=== PATIENT | female | born 1975 | race Caucasian/White ===

== ENCOUNTER 2024-08-01 19:47 | Emergency (ER) | payer OTHER, SELFPAY ==
[2024-08-01 20:03] VITALS: BP 118/62
[2024-08-01] MEDS: ZOFRAN ODT (ORALLY DISINTEGRATING) 4 MG PO (20:13)
[2024-08-01 20:37] LABS: % Basophils 0.1 % (0-2); % Immature Granulocytes 0.2 % (0-0.5); % Lymphocytes 6.8 % (20.5-51.1); % Monocytes 3.9 % (1.7-9.3); Absolute Lymphocytes 0.6 10^3/uL (1.2-3.4); Absolute Monocytes 0.3 10^3/uL (0.1-0.6); Absolute Neutrophils 7.6 10^3/uL (1.4-6.5); Hematocrit 32.4 % (37.0-47.0); Hemoglobin 10.1 g/dL (12.0-16.0); Mean Corp Hgb Conc. 31.2 g/dL (33.0-37.0); Mean Corpuscular Hgb 21.6 pg (27.0-31.0); Mean Corpuscular Volume 69.2 fL (81.0-99.0); Nucleated Red Blood Cells % 0 %; Platelet Count 418 10^3/uL (130-400); Red Blood Cell Count 4.68 10^6/uL (4.20-5.40); Red Cell Dist. Width 17.2 % (11.5-14.5); White Blood Cell Count 8.6 10^3/uL (4.8-10.8)
[2024-08-01 20:51] LABS: HCG, Serum Qualitative Screen Negative
[2024-08-01 20:56] LABS: ALT (SGPT) 15 U/L (0-35); AST (SGOT) 20 U/L (14-36); Albumin 4.6 g/dl (3.5-5.0); Alkaline Phosphatase 55 U/L (38-126); Blood Urea Nitrogen 22 mg/dl (7-17); Carbon Dioxide 20 mmol/L (22-30); Chloride 106 mmol/L (98-107); Glucose 119 mg/dl (70-99); Potassium 3.7 mmol/L (3.5-5.1); Sodium 140 mmol/L (135-145); Total Protein 7.3 g/dl (6.3-8.2); eGFR > 60.00
[2024-08-01 20:57] LABS: Lipase 131 U/L (23-300)
[2024-08-01 20:58] LABS: COVID-19 Antigen Negative (Negative)
--- NOTE | 2024-08-01 22:34 | ED.GENMED ---
History of Present Illness
General
Chief Complaint: Abdominal Symptoms
Time Seen by Provider: 08/01/24 22:33
History of Present Illness
History of Present Illness:
TIME OF INITIAL ENCOUNTER: 10:40 PM
HPI: The patient presents with intractable vomiting. She has diffuse myalgias. 'Everything hurts'. This is associate with diarrhea. She did not think it was food poisoning as her son had the same thing to eat and he did not get sick. She does
not think that she has a migraine as she normally has migraines that only has associated with nausea not this much vomiting.
EXAM:
GENERAL: Appears somewhat uncomfortable
HEENT: Dry oral mucosa
CARDIOVASCULAR: No murmurs, borderline tachycardic heart rate, regular rhythm, No chest wall tenderness
PULMONARY: No respiratory distress, breath sounds are clear and equal
ABDOMEN: Soft with no peritoneal signs, no tenderness
NEUROLOGIC: Excellent strength all extremities, no coordination deficits
PSYCHIATRIC: Appropriate mental status, normal insight and judgement
EXTREMITIES: Nontender, no edema, moves all extremities equally
SKIN: No rash, no lesions
NUMBER AND COMPLEXITY OF PROBLEMS ADDRESSED AT THE ENCOUNTER
� Chronic conditions affecting care: No significant past medical history however does have migraines
� Acute Exacerbation and/or Progression of Chronic Illness: This is an acute problem
� Differential Diagnosis includes: Viral gastroenteritis, foodborne illness, migraine, dehydration, EVERARDO, viral syndrome
AMOUNT AND/OR COMPLEXITY OF DATA TO BE REVIEWED AND ANALYZED
� I performed an independent evaluation of and my interpretation is:
EKG:
CT:
X-rays:
Laboratory Studies: White count normal, hemoglobin 10.1, bicarb 20, hCG negative
Other:
� Review of other/old records: No old records available for review in [facility]
� Clinical information was obtained by an independent historian: I spoke to mother at bedside
� Prescriptions/Medications Considered but not given:
� Further testing considered but not performed: No clear indication for imaging as her pains are diffuse
RISK OF COMPLICATIONS AND/OR MORBIDITY OR MORTALITY OF PATIENT MANAGEMENT
� Social determinants of health affecting care: Lives at home in [place] and is only staying with her mother locally and was supposed to fly back today
� Discussion with other providers:
� Escalation of care including admission/observation vs risk of discharge considered: Upon arrival in triage, the patient was given oral Zofran. She did report some improvement with respect to the nausea and vomiting however
still feels very dehydrated. Will give IV fluids, and will also try Reglan/Benadryl as well as Toradol.
ANY OTHER UPDATES:
12:15 AM: The patient overall feels somewhat improved. She does appear somewhat sedated after the meds given. Blood pressure, heart rate, and sat are normal after meds given.
Phy Exam
Physical Exam
Physical Exam:
See HPI
Course
Orders/Labs/Results
Orders:
Orders
08/01/24 20:11
Ondansetron Orally Disint [Zofran Odt (Orally Disintegrating)] 4 mg .ROUTE .STK-MED ONE
08/01/24 20:13
Ondansetron Orally Disint [Zofran Odt (Orally Disintegrating)] 4 mg PO NOW STA
08/01/24 20:15
Test Result ONCE
08/01/24 20:19
COVID-19 Antigen Urgent
Source: Nasal Swab
Complete Blood Count/With Diff Urgent
Comprehensive Metabolic Panel Urgent
HCG, Serum Qualitative Screen Urgent
Lipase Urgent
Influenza A+B Rapid Molecular Urgent
JUAQUIN Source: Nasal Swab
Specimen Description:
08/01/24 23:05
0.9% Sodium Chloride 1000 ml [Nss] 1,000 ml IV BOLUS
Diphenhydramine [Benadryl] 25 mg IV NOW STA
Ketorolac [Toradol] 15 mg IV NOW STA
Metoclopramide [Reglan] 10 mg IV NOW STA
Abnormal Lab Results
08/01/24
20:19
Hgb 10.1 L g/dL
(12.0-16.0)
Hct 32.4 L %
(37.0-47.0)
MCV 69.2 L fL
(81.0-99.0)
MCH 21.6 L pg
(27.0-31.0)
MCHC 31.2 L g/dL
(33.0-37.0)
RDW 17.2 H %
(11.5-14.5)
Plt Count 418 H 10^3/uL
(130-400)
Absolute Neuts (auto) 7.6 H 10^3/uL
(1.4-6.5)
Absolute Lymphs (auto) 0.6 L 10^3/uL
(1.2-3.4)
Neutrophils % 89.0 H %
(42.2-75.2)
Lymphocytes % 6.8 L %
(20.5-51.1)
Carbon Dioxide 20 L mmol/L
(22-30)
BUN 22 H mg/dl
(7-17)
Glucose 119 H mg/dl
(70-99)
08/01/24 20:19
08/01/24 20:19
Vital Signs
Initial and Last Documented VS:
Initial Vital Signs
Temp Pulse Resp BP Pulse Ox
37.2 C 100 16 118/62 100
08/01/24 20:03 08/01/24 20:03 08/01/24 20:03 08/01/24 20:03 08/01/24 20:03
Last Documented Vital Signs
Temp Pulse Resp BP Pulse Ox
37.2 C 100 16 118/62 100
08/01/24 20:03 08/01/24 20:03 08/01/24 20:03 08/01/24 20:03 08/01/24 20:03
*Critical Care Note
Total Time (30-74mins, 75-104mins- exclusive of procedures): Not Applicable
ED Attending Note
-
Portions of this chart may have been created with voice recognition software.� Occasional wrong word or��sound alike� substitutions may have occurred due to the inherent limitations of voice recognition software.
Discharge Plan
Departure
Patient Disposition: Home (Routine Discharge)
Date of Disposition: 08/02/24
Time of Disposition: 00:31
Patient with high blood pressure during this ER visit?: Yes
Discharge Problem:
Nausea vomiting and diarrhea
Instructions: Diarrhea in teens and adults, Nausea and Vomiting, Adult (DC)
Referrals:
NONE,* [Family Provider] -
Activity Restrictions/Additional Instructions:
I suspect that your symptoms are related to a viral illness such as a stomach bug. We did give you nausea medicine as well as a liter of fluid. Your blood work is relatively unremarkable with exception of a slightly low bicarbonate level which
suggest just a little bit of dehydration. Your kidney function and white blood cell count are normal. Your electrolytes are normal. Your glucose is normal. test is negative.
Interventions
Interventions:
*Risk Screen - Suicide Last Done: 08/01/24 23:54
*General Assessment Last Done: 08/01/24 23:54
*Neglect/Abuse Screening Last Done: 08/01/24 23:54
ED- Fall Risk Assessment Last Done: 08/01/24 23:54
*ED COVID-19 Vaccine History Last Done: 08/01/24 23:54
ZG-Sxxcbn-Rqavnfybyt Assessment Last Done: 08/01/24 23:55
ED- Neurological Assessment Last Done: 08/01/24 23:55
Discharge Date and Time
Print Language: ROMANIAN
[2024-08-01] MEDS: NSS 1000 IV (23:43)
[2024-08-01] MEDS: BENADRYL 25 MG IV (23:46)
[2024-08-01] MEDS: REGLAN 10 MG IV (23:47)
[2024-08-01] MEDS: TORADOL 15 MG IV (23:47)
[2024-08-01 23:52] VITALS: BMI 23.6
[2024-08-01 23:58] VITALS: BP 119/65
[2024-08-02] VITALS: BP 114/65
== END 2024-08-02 01:20 | disposition home or self-care (01) ==
LOC: EMR 19:47
PROVIDERS: EMERGENCY PHYSICIAN Emergency Medicine
DX: R11.2 Nausea with vomiting, unspecified (principal); R19.7 Diarrhea, unspecified
CPT/HCPCS: 96374; 96375; 96361; 99284; 80053; 83690; 84703; 85025; 87502; 87811